=== PATIENT | male | born 2000 | race Caucasian/White ===

== ENCOUNTER 2023-05-16 13:53 | Outpatient (CLI) | payer BC, SELFPAY | END 2023-05-16 13:54 | disposition home or self-care (01) | PROVIDERS: PCP Family Medicine; Visit Provider Family Medicine | DX: R63.5 Abnormal weight gain (principal); Z13.220 Encounter for screening for lipoid disorders; Z13.29 Encounter for screening for other suspected endocrine disorder | CPT/HCPCS: 80053; 80061; 84443 ==